=== PATIENT | male | born 1980 | race Caucasian/White ===

== ENCOUNTER 2021-01-25 21:16 | Emergency (ER) | payer OTHER ==
[2021-01-25 21:47] LABS: EOSINOPHIL 2.1 % (0-5); HCT 32.5 % (42.0-52.0); MCH 28.9 pg (25.0-31.0); MCHC 33.8 g/dL (32.0-36.0); MCV 85.5 fL (78.0-100.0); MONOCYTE 6.7 % (0-12); MPV 10.5 fL (6.0-9.5); NRBC 0; PLT 274 K/uL (150-400); RDW 12.5 % (11.5-14.0)
[2021-01-25 21:57] LABS: INR 1.12 (0.9-1.2); PROTHROMBIN TIME 13.7 SECONDS (11.4-13.6); PTT 27.5 SECONDS (22.2-34.7)
[2021-01-25 22:04] LABS: ALBUMIN 3.7 g/dL (3.4-5.0); ALKALINE PHOSHATASE 85 U/L (46-116); ALT 19 U/L (16-63); AST 13 U/L (15-37); BILIRUBIN - DIRECT <0.05 mg/dL (0.00-0.20); BILIRUBIN - TOTAL 0.2 mg/dL (0.2-1.0); BUN 16 mg/dL (7-18); BUN/CREAT RATIO (CALC) 18.8 RATIO; CHLORIDE 101 mmol/L (98-107); CO2 (BICARBONATE) 32 mmol/L (21-32); CREATININE 0.85 mg/dL (0.67-1.17); GLOBULIN (CALCULATION) 3.3 g/dL; GLUCOSE 98 mg/dL (74-106); LDH 128 U/L (85-227); LIPASE 80 U/L (73-393); POTASSIUM 4.7 mmol/L (3.5-5.1)
[2021-01-25] MEDS ORDERED: PROTONIX 40MG T40 MG PO (23:29)
== END 2021-01-25 23:29 | disposition home or self-care (01) ==
LOC: FER 21:16
PROVIDERS: Student in an Organized Health Care Education/Training Program
DX: K29.70 Gastritis, unspecified, without bleeding (principal); I10 Essential (primary) hypertension; F17.210 Nicotine dependence, cigarettes, uncomplicated; Z79.899 Other long term (current) drug therapy
CPT/HCPCS: 36415; 71045; 80048; 80076; 83615; 83690; 84484; 85025; 85610; 85730; 86140; 87339; 93005; C9113; J2270; J2405; J7030; Q9967

== ENCOUNTER 2021-10-27 08:06 | Emergency (ER) | payer OTHER ==
[~2021-10-27 08:06] MED LIST: PROTONIX 40MG T40 MG PO
[2021-10-27] MEDS ORDERED: ACULAR5 M1 OS (10:36)
[2021-10-27] MEDS ORDERED: NORCO 5-325 TA1 EACH PO (10:36)
[2021-10-27] MEDS ORDERED: ILOTYCIN1 GM OS (10:36)
== END 2021-10-27 11:08 | disposition home or self-care (01) ==
LOC: FER 08:06
DX: T15.02XA Foreign body in cornea, left eye, initial encounter (principal); I10 Essential (primary) hypertension; F17.210 Nicotine dependence, cigarettes, uncomplicated